=== PATIENT | female | born 1965 | race Caucasian/White ===

== ENCOUNTER 2018-03-27 06:43 | Day surgery (SDC) | payer BC ==
[~2018-03-27 06:43] MED LIST: Lactated Ringers 1,000 ML IV SCH
--- NOTE | 2018-03-27 07:13 | PCM.PREANE ---
Preanesthetic Assessment - Anesthesia/Transfusion/Family Hx Anesthesia History: Prior Anesthesia Without Reaction (marked N&V after taking oxycodone for post op pain) Family History of Anesthesia Reaction: No Transfusion History: No Prior Transfusion(s) - Review of Systems General: No Symptoms Pulmonary: No Symptoms Cardiovascular: No Symptoms Gastrointestinal: No Symptoms Neurological: No Symptoms Other: Reports: None - Physical Assessment NPO Status Date: 03/26/18 Height: 1.63 m Weight: 68.039 kg ASA Class: 2 Mental Status: Alert & Oriented x3 Dentition: Reports: Normal Dentition ROM/Head Extension: Full Lungs: Clear to Auscultation, Normal Respiratory Effort Cardiovascular: Regular Rate, Regular Rhythm - Allergies Allergies/Adverse Reactions: Allergies Allergy/AdvReac Type Severity Reaction Status Date / Time Sulfa (Sulfonamide Allergy Hives Verified 03/21/18 11:56 Antibiotics) - Anesthesia Plan Pre-Op Medication Ordered: None - Acknowledgements Anesthesia Type Planned: General Anesthesia Pt an Appropriate Candidate for the Planned Anesthesia: Yes Alternatives and Risks of Anesthesia Discussed w Pt/Guardian: Yes Pt/Guardian Understands and Agrees with Anesthesia Plan: Yes PreAnesthesia Questionnaire Cardiovascular History: Reports: Hypertension, Other (See Below) Other Cardiovascular History: hx varicose vein ligation Gastrointestinal History: Genitourinary History: Reports: None [employer] History: Reports: Musculoskeletal History: Reports: Arthritis Neurological History: Reports: Concussion - Past Surgical History Head Surgeries/Procedures: Reports: None Female Surgical History: Reports: Hysterectomy, Tubal Ligation - SUBSTANCE USE Smoking Status *Q: Former Smoker Tobacco Use Within Last Twelve Months: No Recreational Drug Use History: No - HOME MEDS Home Medications: Home Meds Estradiol 0.5 mg PO DAILY 03/21/18 [History] Multivitamin [Gummi Bear Multivitamin] 2 tab.chew CHEW DAILY 03/21/18 [History] amLODIPine Besylate [Amlodipine Besylate] 10 mg PO DAILY 03/21/18 [History] - CURRENT (IN HOUSE) MEDS Current Meds: Current Medications Hydrocodone Bitart/Acetaminophen (Mccaskill 325-5 Mg) 1 - 2 tab PO Q4H PRN PRN Reason: Pain Cefazolin Sodium/Dextrose 1 gm (/ Premix) 50 mls @ 100 mls/hr IV ONCALL RORY Lactated Ringer's (Ringers, Lactated) 1,000 mls @ 100 mls/hr IV ASDIRECTED RORY
[2018-03-27] MEDS ORDERED: Lidocaine 1% 20 ML MDV ONE (07:20)
[2018-03-27] MEDS ORDERED: Propofol 200 MG/20 ML SDV ONE (07:26)
[2018-03-27] MEDS ORDERED: Midazolam 1 MG/ML 2 ML SDV ONE (07:26)
[2018-03-27] MEDS ORDERED: fentaNYL 100 MCG/2 ML SDV ONE (07:26)
[2018-03-27] MEDS ORDERED: Dexamethasone 4 MG/ML 5 ML MDV ONE (07:27)
[2018-03-27] MEDS ORDERED: ePHEDrine 50 MG/ML SDV ONE (07:27)
[2018-03-27] MEDS ORDERED: Ondansetron 4 MG/2 ML SDV ONE (07:27)
[2018-03-27] MEDS ORDERED: Ketorolac 30 MG/ML SDV ONE (07:27)
[2018-03-27] MEDS ORDERED: Acetaminophen/HYDROcodone 325-5 MG Tab PO PRN ×2 (08:00→08:57)
[2018-03-27] MEDS ORDERED: ceFAZolin 1 GM in Premix Bag 1 BAG IV SCH (08:00)
[2018-03-27] MEDS ORDERED: fentaNYL 100 MCG/2 ML SDV IVPUSH PRN (08:57)
--- NOTE | 2018-03-27 09:02 | PCM.OPNOTE ---
- General Post-Op/Procedure Note Date of Surgery/Procedure: 03/27/18 Operative Procedure(s): L knee arthroscopy with partial medial menisectomy and limited synovectomy with excision of medial plica Post-Op Diagnosis: DJD left knee. L knee medial meniscus tear. L knee medial plica Anesthesia Technique: General ET Tube Primary Surgeon: Mary Spangler EBL in mLs: 5 Condition: Good Free Text/Narrative:: tt=17 min #[id number]
--- NOTE | 2018-03-27 09:24 | PCM.POSTAN ---
POST ANESTHESIA ASSESSMENT - MENTAL STATUS Mental Status: Alert, Oriented - RESPIRATORY Respiratory Status: Respiratory Rate WNL, Airway Patent, O2 Saturation Stable - CARDIOVASCULAR CV Status: Pulse Rate WNL, Blood Pressure Stable - GASTROINTESTINAL GI Status: No Symptoms - POST OP HYDRATION Hydration Status: Adequate & Stable
--- NOTE | 2018-03-27 10:30 | PCM48HPAN ---
Post Anesthesia Note - EVALUATION WITHIN 48HRS OF ANESTHETIC Vital Signs in Normal Range: Yes Patient Participated in Evaluation: Yes Respiratory Function Stable: Yes Airway Patent: Yes Cardiovascular Function Stable: Yes Hydration Status Stable: Yes Pain Control Satisfactory: Yes Nausea and Vomiting Control Satisfactory: Yes Mental Status Recovered: Yes Resp Rate: 15
--- NOTE | 2018-03-27 13:10 | OR ---
SURGEON: Mary Spangler MD DATE OF PROCEDURE: 03/27/2018 PREOPERATIVE DIAGNOSES: 1. Left knee medial meniscus tear. 2. Left knee degenerative joint disease. POSTOPERATIVE DIAGNOSES: 1. Left knee medial meniscus tear. 2. Left knee degenerative joint disease. 3. Left knee medial plica. PROCEDURES: Left knee arthroscopy with partial medial meniscectomy and limited synovectomy with excision of medial plica. HEEL BURNISHER: Natty Quiroz RN. ANESTHESIA: General. ESTIMATED BLOOD LOSS: 5 mL. TOURNIQUET TIME: 17 minutes. COMPLICATIONS: None. DVT PROPHYLAXIS: Not indicated. IMPLANTS USED: None. BRIEF HISTORY: Nabila is a 53-year-old female, who has had complaint of progressive left knee pain. She had failed conservative treatment. Due to her lack of response to conservative treatment, I did recommend surgical intervention. The risks and goals of procedure were discussed with the patient and were documented preoperatively. She agreed to proceed. DESCRIPTION OF THE PROCEDURE: The patient was properly identified and brought to the operating room. She was transferred from the OR cart and placed on the operating table in supine position. General anesthesia was administered. After adequate anesthesia was obtained, a well-padded tourniquet was applied to the left lower extremity. The left lower extremity was then prepped in standard fashion using ChloraPrep solution. It was then sterilely draped. A time-out was performed to ensure correct site and procedure. Preoperative antibiotics were given. The surgical site had been marked preoperatively. An Esmarch was used to exsanguinate the left lower extremity and the tourniquet was inflated to 250 mmHg. A lateral portal arthrotomy was established. Blunt trocar and cannula were introduced into the suprapatellar pouch. Camera, inflow, and outflow were assembled. No significant synovitis was noted. The patellofemoral joint was then visualized. 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 The patella appeared to track centrally. I then extended down the lateral gutter. No loose bodies were identified. Start of an osteophyte was noted along the lateral femoral condyle. As I attempted to go to the medial gutter, it was noted that there was a large medial plica. I did visualize the plica as her knee was taken through flexion and extension, and this did show impingement of the plica on the medial femoral condyle. I was able to extend down the medial femoral condyle into the medial gutter and no loose bodies were identified. The start of an osteophyte was also noted along the medial femoral condyle. I then entered the medial compartment. A medial portal arthrotomy was established. Blunt probe was inserted. Degenerative tearing of the medial meniscus was noted. There was a large flap along the medial aspect of the meniscus, which appeared to be causing some impingement in the joint. Using a combination of biters and shaver, this was resected back to a stable remnant. The joint surfaces were then inspected. The medial tibial plateau showed diffuse grade 3 to grade 4 chondromalacia with the anterior medial aspect showing grade 4 chondromalacia. The medial femoral condyle showed diffuse grade 3 chondromalacia as well. I then entered the notch. Both ACL and PCL were visualized. The ACL appeared to be somewhat degenerative; however, I was able to probe this and its insertion onto the lateral femoral condyle appeared intact. PCL also appeared intact. I then entered the lateral compartment. The lateral meniscus was probed and found to be stable. Minor degenerative fraying was noted along the central portion of the meniscus. The lateral tibial plateau showed softening consistent with grade 1 to grade 2 chondromalacia. Minimal degenerative changes were noted along the lateral femoral condyle. I then re-entered the suprapatellar area. The plica was inspected. This was then resected along with a portion of the abundant fat pad. There was some wearing of the medial femoral condyle beneath the plica. The plica was completely removed and no further impingement was noted. The instruments were then removed from the knee. The portal sites were closed with 3-0 nylon. 1% Lidocaine was injected along the portal tracts. Xeroform gauze was placed over the wound and a bulky dressing was applied. The tourniquet was then deflated. She was awakened from her anesthetic and transferred back to the operating room cart. She was brought to recovery room in stable condition. All needle and sponge counts were correct. YVES / ALESSANDRO /[id number]
== END 2018-03-27 10:37 | disposition home or self-care (01) ==
LOC: MW.SDS 06:43
PROVIDERS: ATTEND Orthopaedic Surgery
DX: M23.204 Derangement of unspecified medial meniscus due to old tear or injury, left knee (principal); M17.12 Unilateral primary osteoarthritis, left knee; M67.52 Plica syndrome, left knee; M94.262 Chondromalacia, left knee; M65.862 Other synovitis and tenosynovitis, left lower leg; I10 Essential (primary) hypertension; Z87.891 Personal history of nicotine dependence; Z79.899 Other long term (current) drug therapy; Z88.2 Allergy status to sulfonamides
CPT/HCPCS: 29881; J1100; J1885; J2250; J2405; J2704; J3010; J7120; 88304